=== PATIENT | female | born 1960 | race African-American/Black ===

== ENCOUNTER 2020-11-28 10:28 | Emergency (ER) | payer SELFPAY ==
[~2020-11-28] VITALS: Ht 165.1 cm; Wt 72.0 kg
[2020-11-28 11:20] VITALS: BP 118/75
== END 2020-11-28 12:14 | disposition home or self-care (01) ==
LOC: ER 10:28
DX: J06.9 Acute upper respiratory infection, unspecified (principal); F17.290 Nicotine dependence, other tobacco product, uncomplicated; Z20.822 Contact with and (suspected) exposure to COVID-19
CPT/HCPCS: 71045; 99284; C9803; U0003; U0005